=== PATIENT | female | born 1955 | race Caucasian/White ===

== ENCOUNTER → 2018-09-21 | Outpatient (CLI) | payer BC ==
[~2018-09-21] MED LIST: ADA40I SUBQ; ALPR-451 PO; ATOR20TA65 PO; CHOL500050 PO; DICY10CA11 PO; HYDR-385 PO; ZOLP-350 PO
[2018-09-21 11:26] LABS: PLATELET COUNT, AUTOMATED 370 K/uL (150-450)
[2018-09-21 11:31] LABS: LDL CHOLESTEROL 121 mg/dl
== END ==
LOC: LAB 10:37
PROVIDERS: ATTEND Nurse Practitioner Family
DX: E78.5 Hyperlipidemia, unspecified (principal); Z79.899 Other long term (current) drug therapy
CPT/HCPCS: 36415; 82040; 82247; 82310; 82374; 82435; 82465; 82565; 82947; 83718; 84075; 84132; 84155; 84295; 84443; 84450; 84460; 84478; 84520; 85025